=== PATIENT | male | born 1975 | race African-American/Black ===

== ENCOUNTER 2023-10-03 14:28 | Inpatient (IN) | payer OTHER, SELFPAY ==
[2023-10-03] MEDS ORDERED: Ipratropium/Albuterol 3 ML NEB ONE ×2 (14:35→17:03)
[2023-10-03] MEDS ORDERED: LevoFLOXacin 750 mg/D5W 150 ml Premix Bag ONE (15:31)
[2023-10-03 16:02] LABS: #Basophils 0.1 10x3/uL (0.0-0.2); #Monocytes 1.8 10x3/uL (0.0-1.1); #Neutrophils 13.6 10x3/uL (1.5-8.4); %Basophils 0.5 % (0.0-2.0); %Eosinophils 0.1 % (0.0-6.0); %Lymphocytes 8.8 % (18.0-47.0); %Neutrophils 77.9 % (40.0-75.0); Hemoglobin 14.9 g/dL (13.5-17.5); Mean Corpuscular HGB CONC 30.4 g/dL (32.0-36.0); Mean Corpuscular Volume 88.8 fl (81.2-95.1); Mean Platelet Volume 10.4 fl (7.4-10.4); Platelet Count 320 10x3/uL (150-450); RBC Distribution Width 14.2 % (11.5-14.5); Red Blood Cell (RBC) Count 5.52 10x6/uL (4.32-5.72); White Blood Cell (WBC) Count 17.5 10x3/uL (3.5-10.5)
[2023-10-03 16:10] LABS: ALT (SGPT) 108 U/L (8-55); AST (SGOT) 103 U/L (5-34); Albumin 4.4 g/dL (3.5-5.0); Alkaline Phosphatase 78 U/L (40-110); Anion Gap 22 mmol/L (10-20); BUN (Urea Nitrogen) 11 mg/dL (8.9-20.6); Bilirubin, Total 0.3 mg/dL (0.2-1.2); Calc. Creatinine Clearance 0 mL/min (70-130); Calcium 8.9 mg/dL (7.8-10.44); Carbon Dioxide 23 mmol/L (22-29); Chloride 100 mmol/L (98-107); Estimated GFR 60; Globulin 2.3 g/dL (2.4-3.5); Glucose 378 mg/dL (70-105); Lipase 22 U/L (8-78); Protein, Total 6.7 g/dL (6.0-8.3); Sodium 140 mmol/L (136-145)
[2023-10-03 16:16] LABS: Troponin I 0.153 ng/mL (< 0.028)
[2023-10-03 16:37] LABS: Actual Bicarbonate (HCO3a) 30.2 mEq/L (22-28); Analyzer IN Cardio CS ER; Base Excess (BEa) -1.8 mEq/L (-2.0 to +3.0); CO2 Tension 90.2 mmHg (35.0-45.0); Calcium, Ionized (arterial) 1.18 mmol/L (1.12-1.30); Carboxyhemoglobin (COHb) 0.3 gm% (0.0-3.0); Hematocrit-ABG 46 % (42.0-52.0); Hemoglobin (Hb) 15.7 g/dL (14.0-18.0); O2 Tension (PaO2), arterial 152.5 mmHg (80.0-100.0); Potassium - ABG Lab 4.75 mmol/L (3.70-5.30); Puncture Site LRA; pH, Arterial 7.143 (7.35-7.45)
[2023-10-03 16:38] LABS: ALV-art Gradient 120.325 mmHg (0-20); Actual Bicarbonate (HCO3a) 23.1 mEq/L (22-28); Analyzer IN Cardio CS ER; Base Excess (BEa) -4.8 mEq/L (-2.0 to +3.0); CO2 Tension 53.9 mmHg (35.0-45.0); Calcium, Ionized (arterial) 1.09 mmol/L (1.12-1.30); Carboxyhemoglobin (COHb) 0.3 gm% (0.0-3.0); Hematocrit-ABG 42 % (42.0-52.0); Hemoglobin (Hb) 14.2 g/dL (14.0-18.0); O2 Tension (PaO2), arterial 168.8 mmHg (80.0-100.0); Potassium - ABG Lab 4.28 mmol/L (3.70-5.30); Puncture Site LRA; pH, Arterial 7.249 (7.35-7.45)
[2023-10-03] MEDS ORDERED: Ipratropium/Albuterol 3 ML NEB NEB PRN (18:56)
[2023-10-03 19:14] LABS: SARS-CoV-2 NAA Rapid Test Not Detected (NotDetected)
[2023-10-03] MEDS ORDERED: FLU VACC QS2023-24(6MOS UP)/PF 60 MCG/0.5 ML SYRINGE IM ONE (19:15)
[2023-10-03 19:55] LABS: Anion Gap 16 mmol/L (10-20); BUN (Urea Nitrogen) 9 mg/dL (8.9-20.6); Calc. Creatinine Clearance 135 mL/min (70-130); Calcium 7.9 mg/dL (7.8-10.44); Carbon Dioxide 23 mmol/L (22-29); Chloride 106 mmol/L (98-107); Estimated GFR 100; Glucose 156 mg/dL (70-105); Potassium 4.8 mmol/L (3.5-5.1); Sodium 140 mmol/L (136-145)
[2023-10-03] MEDS ORDERED: Arformoterol 15 MCG/2 ML NEB NEB SCH (20:45)
[2023-10-03] MEDS ORDERED: Budesonide 0.5 MG/2 ML NEB INH SCH (20:45)
[2023-10-03] MEDS: cefTRIAXone\\ROCEPHIN 1 GM in Sodium Chloride 0.9% 100 ML IVPB SCH (20:59)
[2023-10-03] MEDS: Azithromycin 500 MG in Sodium Chloride 0.9% 250 ML 250 ML IVPB SCH (22:27)
[2023-10-03] MEDS: methylPREDNISolone Sod Succ 40 MG VIAL IVP SCH (23:27)
[2023-10-04] MEDS: Dexmedetomidine In 0.9 % NaCl 100 ML IVPB SCH ×2 (00:44→15:28)
[2023-10-04 03:37] LABS: ALT (SGPT) 121 U/L (8-55); AST (SGOT) 56 U/L (5-34); Albumin 4.3 g/dL (3.5-5.0); Alkaline Phosphatase 70 U/L (40-110); Anion Gap 18 mmol/L (10-20); BUN (Urea Nitrogen) 9 mg/dL (8.9-20.6); Bilirubin, Total 0.3 mg/dL (0.2-1.2); Calc. Creatinine Clearance 127 mL/min (70-130); Calcium 8.6 mg/dL (7.8-10.44); Carbon Dioxide 24 mmol/L (22-29); Chloride 103 mmol/L (98-107); Estimated GFR 93; Globulin 2.8 g/dL (2.4-3.5); Glucose 145 mg/dL (70-105); Magnesium 2.6 mg/dL (1.6-2.6); Potassium 5.3 mmol/L (3.5-5.1); Protein, Total 7.1 g/dL (6.0-8.3); Sodium 140 mmol/L (136-145)
[2023-10-04 03:56] LABS: #Monocytes 1.1 10x3/uL (0.0-1.1); #Neutrophils 19.2 10x3/uL (1.5-8.4); %Basophils 0.2 % (0.0-2.0); %Lymphocytes 2.2 % (18.0-47.0); %Monocytes 5.1 % (0.0-10.0); %Neutrophils 91.1 % (40.0-75.0); Hematocrit 46.7 % (38.8-50.0); Hemoglobin 14.3 g/dL (13.5-17.5); Mean Corpuscular HGB CONC 30.6 g/dL (32.0-36.0); Mean Corpuscular Volume 88.1 fl (81.2-95.1); Mean Platelet Volume 10.3 fl (7.4-10.4); Platelet Count 270 10x3/uL (150-450); RBC Distribution Width 14.6 % (11.5-14.5)
[2023-10-04] MEDS ORDERED: Sodium Chloride 0.45% 1,000 ML IV SCH (05:30)
[2023-10-04] MEDS: methylPREDNISolone Sod Succ 40 MG VIAL IVP SCH ×3 (07:12→21:06)
[2023-10-04] MEDS: Budesonide 0.5 MG/2 ML NEB INH SCH ×2 (07:28→19:07)
[2023-10-04] MEDS: Ipratropium Bromide 2.5 ml Neb NEB SCH ×6 (07:31→22:45)
[2023-10-04] MEDS: Arformoterol 15 MCG/2 ML NEB NEB SCH ×2 (07:33→19:07)
[2023-10-04 08:02] LABS: Actual Bicarbonate (HCO3a) 30.5 mEq/L (22-28); Analyzer IN Cardio CS ICU; Base Excess (BEa) 1.1 mEq/L (-2.0 to +3.0); CO2 Tension 70.7 mmHg (35.0-45.0); Calcium, Ionized (arterial) 1.17 mmol/L (1.12-1.30); Carboxyhemoglobin (COHb) 0.8 gm% (0.0-3.0); Hematocrit-ABG 44 % (42.0-52.0); Hemoglobin (Hb) 15.1 g/dL (14.0-18.0); Potassium - ABG Lab 4.94 mmol/L (3.70-5.30); Puncture Site RRA; pH, Arterial 7.253 (7.35-7.45)
[2023-10-04 10:30] VITALS: BMI 37.6
[2023-10-04] MEDS: Azithromycin 500 MG in Sodium Chloride 0.9% 250 ML 250 ML IVPB SCH (21:05)
[2023-10-04] MEDS: cefTRIAXone\\ROCEPHIN 1 GM in Sodium Chloride 0.9% 100 ML IVPB SCH (21:06)
[2023-10-05] MEDS: Ipratropium Bromide 2.5 ml Neb NEB SCH ×6 (01:47→22:40)
[2023-10-05] MEDS: methylPREDNISolone Sod Succ 40 MG VIAL IVP SCH ×4 (03:59→21:31)
[2023-10-05 05:23] LABS: #Eosinphils 0.1 10x3/uL (0.0-0.5); #Monocytes 1.6 10x3/uL (0.0-1.1); #Neutrophils 15.3 10x3/uL (1.5-8.4); %Basophils 0.2 % (0.0-2.0); %Eosinophils 0.6 % (0.0-6.0); %Lymphocytes 3.8 % (18.0-47.0); %Monocytes 9.1 % (0.0-10.0); %Neutrophils 85.8 % (40.0-75.0); Hematocrit 44.4 % (38.8-50.0); Mean Corpuscular HGB CONC 31.5 g/dL (32.0-36.0); Mean Corpuscular Hemoglobin 27.8 pg (27.0-33.0); Mean Corpuscular Volume 88.3 fl (81.2-95.1); Mean Platelet Volume 9.9 fl (7.4-10.4); Platelet Count 244 10x3/uL (150-450); RBC Distribution Width 14.2 % (11.5-14.5); Red Blood Cell (RBC) Count 5.03 10x6/uL (4.32-5.72); White Blood Cell (WBC) Count 17.8 10x3/uL (3.5-10.5)
[2023-10-05 05:27] LABS: ALT (SGPT) 81 U/L (8-55); AST (SGOT) 25 U/L (5-34); Albumin 3.9 g/dL (3.5-5.0); Alkaline Phosphatase 58 U/L (40-110); Anion Gap 17 mmol/L (10-20); BUN (Urea Nitrogen) 18 mg/dL (8.9-20.6); Bilirubin, Total 0.4 mg/dL (0.2-1.2); Calc. Creatinine Clearance 135 mL/min (70-130); Calcium 9.2 mg/dL (7.8-10.44); Carbon Dioxide 30 mmol/L (22-29); Chloride 95 mmol/L (98-107); Estimated GFR 96; Globulin 2.5 g/dL (2.4-3.5); Glucose 123 mg/dL (70-105); Potassium 4.7 mmol/L (3.5-5.1); Protein, Total 6.4 g/dL (6.0-8.3); Sodium 137 mmol/L (136-145)
[2023-10-05] MEDS: Arformoterol 15 MCG/2 ML NEB NEB SCH ×2 (07:24→19:00)
[2023-10-05] MEDS: Budesonide 0.5 MG/2 ML NEB INH SCH ×2 (07:26→19:05)
[2023-10-05] MEDS ORDERED: Polyethylene Glycol 3350 17 GM Packet PO PRN (10:58)
[2023-10-05 11:03] LABS: Actual Bicarbonate (HCO3a) 35.2 mEq/L (22-28); Analyzer IN Cardio CS ICU; Base Excess (BEa) 7.2 mEq/L (-2.0 to +3.0); CO2 Tension 64.9 mmHg (35.0-45.0); Calcium, Ionized (arterial) 1.18 mmol/L (1.12-1.30); Carboxyhemoglobin (COHb) 0.5 gm% (0.0-3.0); Hematocrit-ABG 42 % (42.0-52.0); Hemoglobin (Hb) 14.3 g/dL (14.0-18.0); O2 Tension (PaO2), arterial 90.4 mmHg (80.0-100.0); Potassium - ABG Lab 4.51 mmol/L (3.70-5.30); Puncture Site RRA; pH, Arterial 7.352 (7.35-7.45)
[2023-10-05] MEDS: Furosemide 40 MG/4 ML VIAL SLOW IVP SCH (14:05)
[2023-10-05] MEDS: Bisacodyl 5 MG TAB PO PRN (15:15)
[2023-10-05] MEDS: Dexmedetomidine In 0.9 % NaCl 100 ML IVPB SCH (17:00)
[2023-10-05] MEDS ORDERED: Budesonide 0.25 MG/2 ML NEB ONE (18:57)
[2023-10-05] MEDS: cefTRIAXone\\ROCEPHIN 1 GM in Sodium Chloride 0.9% 100 ML IVPB SCH (20:31)
[2023-10-05] MEDS: guaiFENesin ER 600 MG TAB PO SCH (21:31)
[2023-10-05] MEDS: Azithromycin 500 MG in Sodium Chloride 0.9% 250 ML 250 ML IVPB SCH (21:31)
[2023-10-05] MEDS: Atorvastatin Calcium 40 MG TAB PO SCH (21:31)
[2023-10-06] MEDS: Ipratropium Bromide 2.5 ml Neb NEB SCH ×2 (02:11→07:53)
[2023-10-06] MEDS: methylPREDNISolone Sod Succ 40 MG VIAL IVP SCH ×4 (02:18→20:14)
[2023-10-06 04:34] LABS: #Eosinphils 0.1 10x3/uL (0.0-0.5); #Neutrophils 15.7 10x3/uL (1.5-8.4); %Basophils 0.2 % (0.0-2.0); %Eosinophils 0.5 % (0.0-6.0); %Lymphocytes 3.7 % (18.0-47.0); %Monocytes 5.6 % (0.0-10.0); %Neutrophils 89.3 % (40.0-75.0); Hematocrit 45.8 % (38.8-50.0); Hemoglobin 14.4 g/dL (13.5-17.5); Mean Corpuscular HGB CONC 31.4 g/dL (32.0-36.0); Mean Corpuscular Hemoglobin 27.2 pg (27.0-33.0); Mean Corpuscular Volume 86.6 fl (81.2-95.1); Platelet Count 231 10x3/uL (150-450); RBC Distribution Width 13.6 % (11.5-14.5); Red Blood Cell (RBC) Count 5.29 10x6/uL (4.32-5.72); White Blood Cell (WBC) Count 17.6 10x3/uL (3.5-10.5)
[2023-10-06 04:48] LABS: ALT (SGPT) 82 U/L (8-55); AST (SGOT) 29 U/L (5-34); Albumin 3.8 g/dL (3.5-5.0); Alkaline Phosphatase 57 U/L (40-110); Anion Gap 19 mmol/L (10-20); BUN (Urea Nitrogen) 27 mg/dL (8.9-20.6); Bilirubin, Total 0.5 mg/dL (0.2-1.2); Calc. Creatinine Clearance 123 mL/min (70-130); Calcium 9.2 mg/dL (7.8-10.44); Carbon Dioxide 31 mmol/L (22-29); Chloride 91 mmol/L (98-107); Estimated GFR 90; Globulin 2.8 g/dL (2.4-3.5); Glucose 135 mg/dL (70-105); Potassium 5.2 mmol/L (3.5-5.1); Protein, Total 6.6 g/dL (6.0-8.3); Sodium 136 mmol/L (136-145)
[2023-10-06] MEDS: Furosemide 40 MG/4 ML VIAL SLOW IVP SCH ×2 (05:54→14:11)
[2023-10-06] MEDS: Budesonide 0.5 MG/2 ML NEB INH SCH ×2 (07:52→19:15)
[2023-10-06] MEDS: Arformoterol 15 MCG/2 ML NEB NEB SCH ×2 (07:53→19:15)
[2023-10-06] MEDS: Aspirin 81 mg Enteric Coated Tablet PO SCH (08:21)
[2023-10-06] MEDS: guaiFENesin ER 600 MG TAB PO SCH ×2 (08:21→20:13)
[2023-10-06] MEDS: Bisacodyl 5 MG TAB PO PRN (14:11)
[2023-10-06] MEDS: cefTRIAXone\\ROCEPHIN 1 GM in Sodium Chloride 0.9% 100 ML IVPB SCH (20:11)
[2023-10-06] MEDS: Atorvastatin Calcium 40 MG TAB PO SCH (20:13)
[2023-10-06] MEDS: Azithromycin 500 MG in Sodium Chloride 0.9% 250 ML 250 ML IVPB SCH (20:14)
[2023-10-07] MEDS: methylPREDNISolone Sod Succ 40 MG VIAL IVP SCH ×4 (02:36→20:19)
[2023-10-07 03:54] LABS: #Basophils 0.1 10x3/uL (0.0-0.2); #Monocytes 1.4 10x3/uL (0.0-1.1); #Neutrophils 18.6 10x3/uL (1.5-8.4); %Basophils 0.3 % (0.0-2.0); %Lymphocytes 3.8 % (18.0-47.0); %Monocytes 6.8 % (0.0-10.0); %Neutrophils 88.3 % (40.0-75.0); Hematocrit 46.8 % (38.8-50.0); Hemoglobin 15.2 g/dL (13.5-17.5); Mean Corpuscular HGB CONC 32.5 g/dL (32.0-36.0); Mean Corpuscular Hemoglobin 27.5 pg (27.0-33.0); Mean Corpuscular Volume 84.8 fl (81.2-95.1); Mean Platelet Volume 9.9 fl (7.4-10.4); Platelet Count 272 10x3/uL (150-450); RBC Distribution Width 13.6 % (11.5-14.5); Red Blood Cell (RBC) Count 5.52 10x6/uL (4.32-5.72)
[2023-10-07 04:01] LABS: ALT (SGPT) 113 U/L (8-55); AST (SGOT) 68 U/L (5-34); Albumin 4.2 g/dL (3.5-5.0); Alkaline Phosphatase 63 U/L (40-110); Anion Gap 22 mmol/L (10-20); BUN (Urea Nitrogen) 32 mg/dL (8.9-20.6); Bilirubin, Total 0.6 mg/dL (0.2-1.2); Calc. Creatinine Clearance 111 mL/min (70-130); Calcium 9.3 mg/dL (7.8-10.44); Carbon Dioxide 34 mmol/L (22-29); Chloride 88 mmol/L (98-107); Estimated GFR 79; Glucose 140 mg/dL (70-105); Potassium 4.5 mmol/L (3.5-5.1); Protein, Total 7.2 g/dL (6.0-8.3); Sodium 139 mmol/L (136-145)
[2023-10-07] MEDS: Furosemide 40 MG/4 ML VIAL SLOW IVP SCH (05:16)
[2023-10-07] MEDS: Arformoterol 15 MCG/2 ML NEB NEB SCH ×2 (07:30→18:55)
[2023-10-07] MEDS: Budesonide 0.25 MG/2 ML NEB INH SCH ×2 (07:30→19:03)
[2023-10-07] MEDS: Aspirin 81 mg Enteric Coated Tablet PO SCH (08:10)
[2023-10-07] MEDS: guaiFENesin ER 600 MG TAB PO SCH ×2 (08:10→20:19)
[2023-10-07] MEDS: Budesonide 0.5 MG/2 ML NEB INH SCH (09:55)
[2023-10-07] MEDS: Carvedilol 6.25 MG TAB PO SCH (15:55)
[2023-10-07] MEDS ORDERED: Levalbuterol HCl 0.63 MG/3 ML NEB NEB SCH (16:10)
[2023-10-07] MEDS: Valsartan 80 MG TAB PO SCH (20:18)
[2023-10-07] MEDS: Atorvastatin Calcium 40 MG TAB PO SCH (20:19)
[2023-10-07] MEDS: Azithromycin 500 MG in Sodium Chloride 0.9% 250 ML 250 ML IVPB SCH (20:20)
[2023-10-07] MEDS: cefTRIAXone\\ROCEPHIN 1 GM in Sodium Chloride 0.9% 100 ML IVPB SCH (20:20)
[2023-10-07] MEDS: Levalbuterol HCl 0.63 MG/3 ML NEB NEB SCH (22:49)
[2023-10-08] MEDS: ALPRAZolam 0.25 MG TAB PO PRN ×3 (00:26→22:20)
[2023-10-08 03:39] LABS: #Basophils 0.1 10x3/uL (0.0-0.2); #Monocytes 1.1 10x3/uL (0.0-1.1); #Neutrophils 18.1 10x3/uL (1.5-8.4); %Basophils 0.2 % (0.0-2.0); %Lymphocytes 3.4 % (18.0-47.0); %Monocytes 5.3 % (0.0-10.0); Hemoglobin 14.7 g/dL (13.5-17.5); Mean Corpuscular Hemoglobin 27.3 pg (27.0-33.0); Mean Corpuscular Volume 85.5 fl (81.2-95.1); Mean Platelet Volume 10.3 fl (7.4-10.4); Platelet Count 268 10x3/uL (150-450); RBC Distribution Width 13.5 % (11.5-14.5); Red Blood Cell (RBC) Count 5.38 10x6/uL (4.32-5.72); White Blood Cell (WBC) Count 20.1 10x3/uL (3.5-10.5)
[2023-10-08 04:20] LABS: ALT (SGPT) 89 U/L (8-55); AST (SGOT) 29 U/L (5-34); Alkaline Phosphatase 56 U/L (40-110); Anion Gap 18 mmol/L (10-20); BUN (Urea Nitrogen) 31 mg/dL (8.9-20.6); Bilirubin, Total 0.5 mg/dL (0.2-1.2); Calc. Creatinine Clearance 112 mL/min (70-130); Calcium 9.1 mg/dL (7.8-10.44); Carbon Dioxide 34 mmol/L (22-29); Chloride 87 mmol/L (98-107); Estimated GFR 87; Globulin 2.6 g/dL (2.4-3.5); Glucose 148 mg/dL (70-105); Potassium 4.5 mmol/L (3.5-5.1); Protein, Total 6.6 g/dL (6.0-8.3); Sodium 134 mmol/L (136-145)
[2023-10-08] MEDS: methylPREDNISolone Sod Succ 40 MG VIAL IVP SCH ×4 (04:49→20:15)
[2023-10-08] MEDS: Levalbuterol HCl 0.63 MG/3 ML NEB NEB SCH ×3 (07:05→23:00)
[2023-10-08] MEDS: Arformoterol 15 MCG/2 ML NEB NEB SCH ×2 (07:05→19:37)
[2023-10-08] MEDS: Budesonide 0.25 MG/2 ML NEB INH SCH ×2 (07:05→19:43)
[2023-10-08] MEDS: Carvedilol 6.25 MG TAB PO SCH ×2 (10:37→16:33)
[2023-10-08] MEDS: Furosemide 40 MG TAB PO SCH (10:37)
[2023-10-08] MEDS: Aspirin 81 mg Enteric Coated Tablet PO SCH (10:38)
[2023-10-08] MEDS: guaiFENesin ER 600 MG TAB PO SCH ×2 (10:39→20:15)
[2023-10-08] MEDS: Sulfameth/Trimethoprim DS 800-160mg TAB PO SCH (10:40)
[2023-10-08] MEDS: Valsartan 80 MG TAB PO SCH ×2 (10:40→20:15)
[2023-10-08] MEDS: Atorvastatin Calcium 40 MG TAB PO SCH (20:15)
[2023-10-09] MEDS: methylPREDNISolone Sod Succ 40 MG VIAL IVP SCH ×4 (02:43→21:12)
[2023-10-09 03:28] LABS: #Monocytes 1.2 10x3/uL (0.0-1.1); #Neutrophils 19.6 10x3/uL (1.5-8.4); %Basophils 0.1 % (0.0-2.0); %Lymphocytes 2.7 % (18.0-47.0); %Monocytes 5.6 % (0.0-10.0); %Neutrophils 90.2 % (40.0-75.0); Hematocrit 44.5 % (38.8-50.0); Hemoglobin 14.6 g/dL (13.5-17.5); Mean Corpuscular HGB CONC 32.8 g/dL (32.0-36.0); Mean Corpuscular Hemoglobin 27.5 pg (27.0-33.0); Mean Corpuscular Volume 83.8 fl (81.2-95.1); Mean Platelet Volume 12.3 fl (7.4-10.4); Platelet Count 247 10x3/uL (150-450); RBC Distribution Width 13.3 % (11.5-14.5); Red Blood Cell (RBC) Count 5.31 10x6/uL (4.32-5.72); White Blood Cell (WBC) Count 21.7 10x3/uL (3.5-10.5)
[2023-10-09 06:04] LABS: ALT (SGPT) 68 U/L (8-55); AST (SGOT) 23 U/L (5-34); Albumin 3.9 g/dL (3.5-5.0); Alkaline Phosphatase 54 U/L (40-110); Anion Gap 19 mmol/L (10-20); BUN (Urea Nitrogen) 44 mg/dL (8.9-20.6); Bilirubin, Total 0.8 mg/dL (0.2-1.2); Calc. Creatinine Clearance 109 mL/min (70-130); Calcium 9.2 mg/dL (7.8-10.44); Carbon Dioxide 33 mmol/L (22-29); Chloride 91 mmol/L (98-107); Estimated GFR 84; Globulin 2.5 g/dL (2.4-3.5); Glucose 126 mg/dL (70-105); Potassium 4.7 mmol/L (3.5-5.1); Protein, Total 6.4 g/dL (6.0-8.3); Sodium 138 mmol/L (136-145)
[2023-10-09] MEDS: Arformoterol 15 MCG/2 ML NEB NEB SCH (06:45)
[2023-10-09] MEDS: Budesonide 0.25 MG/2 ML NEB INH SCH (06:45)
[2023-10-09] MEDS: Levalbuterol HCl 0.63 MG/3 ML NEB NEB SCH ×5 (06:45→22:45)
[2023-10-09] MEDS: Carvedilol 6.25 MG TAB PO SCH (08:09)
[2023-10-09] MEDS: Furosemide 40 MG TAB PO SCH (08:09)
[2023-10-09] MEDS: Aspirin 81 mg Enteric Coated Tablet PO SCH (08:09)
[2023-10-09] MEDS: guaiFENesin ER 600 MG TAB PO SCH ×2 (08:09→21:11)
[2023-10-09] MEDS: Valsartan 80 MG TAB PO SCH ×2 (08:10→21:11)
[2023-10-09] MEDS: Sulfameth/Trimethoprim DS 800-160mg TAB PO SCH (08:10)
[2023-10-09] MEDS: Carvedilol 12.5 MG TAB PO SCH (17:15)
[2023-10-09] MEDS: Mometasone/Formoterol 200/5 60 PUFF INH SCH (19:25)
[2023-10-09] MEDS: Atorvastatin Calcium 40 MG TAB PO SCH (21:11)
[2023-10-09] MEDS: ALPRAZolam 0.25 MG TAB PO PRN (23:20)
[2023-10-10] MEDS: Levalbuterol HCl 0.63 MG/3 ML NEB NEB SCH ×6 (02:35→23:55)
[2023-10-10 03:38] LABS: #Basophils 0.1 10x3/uL (0.0-0.2); #Monocytes 1.7 10x3/uL (0.0-1.1); #Neutrophils 21.8 10x3/uL (1.5-8.4); %Basophils 0.2 % (0.0-2.0); %Lymphocytes 2.3 % (18.0-47.0); %Monocytes 6.9 % (0.0-10.0); %Neutrophils 88.8 % (40.0-75.0); Hematocrit 45.4 % (38.8-50.0); Hemoglobin 14.8 g/dL (13.5-17.5); Mean Corpuscular HGB CONC 32.6 g/dL (32.0-36.0); Mean Corpuscular Hemoglobin 27.6 pg (27.0-33.0); Mean Corpuscular Volume 84.5 fl (81.2-95.1); Mean Platelet Volume 10.1 fl (7.4-10.4); Platelet Count 260 10x3/uL (150-450); Red Blood Cell (RBC) Count 5.37 10x6/uL (4.32-5.72); White Blood Cell (WBC) Count 24.6 10x3/uL (3.5-10.5)
[2023-10-10 03:52] LABS: ALT (SGPT) 59 U/L (8-55); AST (SGOT) 20 U/L (5-34); Albumin 3.7 g/dL (3.5-5.0); Alkaline Phosphatase 55 U/L (40-110); Anion Gap 18 mmol/L (10-20); BUN (Urea Nitrogen) 40 mg/dL (8.9-20.6); Bilirubin, Total 0.5 mg/dL (0.2-1.2); Calc. Creatinine Clearance 119 mL/min (70-130); Calcium 8.8 mg/dL (7.8-10.44); Carbon Dioxide 29 mmol/L (22-29); Chloride 93 mmol/L (98-107); Estimated GFR 95; Globulin 2.3 g/dL (2.4-3.5); Glucose 126 mg/dL (70-105); Potassium 4.8 mmol/L (3.5-5.1); Sodium 135 mmol/L (136-145)
[2023-10-10] MEDS: methylPREDNISolone Sod Succ 40 MG VIAL IVP SCH ×3 (04:50→15:46)
[2023-10-10] MEDS: Mometasone/Formoterol 200/5 60 PUFF INH SCH ×2 (06:55→19:35)
[2023-10-10] MEDS: guaiFENesin ER 600 MG TAB PO SCH ×2 (08:59→21:45)
[2023-10-10] MEDS: Carvedilol 12.5 MG TAB PO SCH ×2 (08:59→16:46)
[2023-10-10] MEDS: Aspirin 81 mg Enteric Coated Tablet PO SCH (08:59)
[2023-10-10] MEDS: Furosemide 40 MG TAB PO SCH (08:59)
[2023-10-10] MEDS: Sulfameth/Trimethoprim DS 800-160mg TAB PO SCH (09:00)
[2023-10-10] MEDS: Valsartan 80 MG TAB PO SCH ×2 (09:00→21:45)
[2023-10-10] MEDS ORDERED: Calcium Carbonate 500 MG ChewTAB PO PRN (21:17)
[2023-10-10] MEDS: Atorvastatin Calcium 40 MG TAB PO SCH (21:45)
[2023-10-11] MEDS: ALPRAZolam 0.25 MG TAB PO PRN (00:13)
[2023-10-11] MEDS: methylPREDNISolone Sod Succ 40 MG VIAL IVP SCH ×2 (00:13→07:36)
[2023-10-11] MEDS: Levalbuterol HCl 0.63 MG/3 ML NEB NEB SCH ×4 (03:45→16:00)
[2023-10-11 05:27] LABS: #Basophils 0.1 10x3/uL (0.0-0.2); #Monocytes 1.6 10x3/uL (0.0-1.1); #Neutrophils 21.8 10x3/uL (1.5-8.4); %Basophils 0.2 % (0.0-2.0); %Lymphocytes 2.6 % (18.0-47.0); %Monocytes 6.5 % (0.0-10.0); %Neutrophils 88.5 % (40.0-75.0); Hemoglobin 14.8 g/dL (13.5-17.5); Mean Corpuscular HGB CONC 32.9 g/dL (32.0-36.0); Mean Corpuscular Hemoglobin 27.5 pg (27.0-33.0); Mean Corpuscular Volume 83.6 fl (81.2-95.1); Mean Platelet Volume 9.5 fl (7.4-10.4); Platelet Count 276 10x3/uL (150-450); Red Blood Cell (RBC) Count 5.38 10x6/uL (4.32-5.72); White Blood Cell (WBC) Count 24.6 10x3/uL (3.5-10.5)
[2023-10-11 05:41] LABS: ALT (SGPT) 70 U/L (8-55); AST (SGOT) 27 U/L (5-34); Albumin 3.7 g/dL (3.5-5.0); Alkaline Phosphatase 63 U/L (40-110); Anion Gap 16 mmol/L (10-20); BUN (Urea Nitrogen) 35 mg/dL (8.9-20.6); Bilirubin, Total 0.6 mg/dL (0.2-1.2); Calc. Creatinine Clearance 125 mL/min (70-130); Calcium 8.8 mg/dL (7.8-10.44); Carbon Dioxide 29 mmol/L (22-29); Chloride 95 mmol/L (98-107); Estimated GFR 100; Globulin 2.1 g/dL (2.4-3.5); Glucose 127 mg/dL (70-105); Potassium 4.4 mmol/L (3.5-5.1); Protein, Total 5.8 g/dL (6.0-8.3); Sodium 136 mmol/L (136-145)
[2023-10-11] MEDS: Mometasone/Formoterol 200/5 60 PUFF INH SCH (07:30)
[2023-10-11] MEDS: Furosemide 40 MG TAB PO SCH (08:16)
[2023-10-11] MEDS: Carvedilol 12.5 MG TAB PO SCH (08:16)
[2023-10-11] MEDS: Sulfameth/Trimethoprim DS 800-160mg TAB PO SCH (08:16)
[2023-10-11] MEDS: guaiFENesin ER 600 MG TAB PO SCH (08:16)
[2023-10-11] MEDS: Aspirin 81 mg Enteric Coated Tablet PO SCH (08:16)
[2023-10-11] MEDS: Valsartan 80 MG TAB PO SCH (08:17)
[2023-10-11 12:58] VITALS: BP 106/70; TEMP 98
== END 2023-10-11 16:15 | disposition home or self-care (01) | DRG 189 ==
LOC: EDBD 14:28 → CSHERS 14:28 → CSHIMCU 15:12 → CSHTELE 10-10 11:54
PROVIDERS: ADMIT Internal Medicine; ATTEND Internal Medicine
PROC: 4A133R1 Monitoring of Arterial Saturation, Peripheral, Percutaneous Approach (ICD-10-PCS; principal; 2023-10-03)
PROC: 5A09457 Assistance with Respiratory Ventilation, 24-96 Consecutive Hours, Continuous Positive Airway Pressure (ICD-10-PCS; 2023-10-05)
PROC: 5A09457 Assistance with Respiratory Ventilation, 24-96 Consecutive Hours, Continuous Positive Airway Pressure (ICD-10-PCS; 2023-10-05)
PROC: 5A0945A Assistance with Respiratory Ventilation, 24-96 Consecutive Hours, High Flow/Velocity Cannula (ICD-10-PCS; 2023-10-07)
DX: J96.21 Acute and chronic respiratory failure with hypoxia (principal); I21.A1 Myocardial infarction type 2; I50.21 Acute systolic (congestive) heart failure; J44.1 Chronic obstructive pulmonary disease with (acute) exacerbation; E87.29 Other acidosis; N17.9 Acute kidney failure, unspecified; I42.9 Cardiomyopathy, unspecified; R73.9 Hyperglycemia, unspecified; E66.9 Obesity, unspecified; F41.9 Anxiety disorder, unspecified; J96.22 Acute and chronic respiratory failure with hypercapnia; D72.829 Elevated white blood cell count, unspecified; T38.0X5A Adverse effect of glucocorticoids and synthetic analogues, initial encounter; Z11.52 Encounter for screening for COVID-19; Z88.8 Allergy status to other drugs, medicaments and biological substances; Z79.51 Long term (current) use of inhaled steroids; Z79.899 Other long term (current) drug therapy; Z98.890 Other specified postprocedural states; Z68.33 Body mass index [BMI] 33.0-33.9, adult
CPT/HCPCS: 36415; 36416; 36600; 71045; 71250; 80053; 82805; 83605; 83690; 83735; 83880; 84484; 85025; 87040; 93005; 93010; 93306; 94640; 94660; 94667; 94760; 94762; 94799; 96365; 96366; 96374; J0456; J0696; J1650; J1940; J1956; J2920; J3490; J7050; J7611; J7614; J7620; J7626